=== PATIENT | male | born 1975 | race Two or more races ===

== ENCOUNTER 2017-03-23 17:01 | Emergency (ER) | payer SELFPAY ==
[~2017-03-23] VITALS: Ht 160 cm; Wt 75.5 kg
[2017-03-23 18:37] VITALS: Ht 160 cm; Wt 75.5 kg
[2017-03-23] MEDS ORDERED: ACETAMINOPHEN 325 MG TAB PO ONE (20:00)
--- NOTE | 2017-03-23 21:39 | RADRPT ---
PROCEDURE: XR Hand. CLINICAL INDICATION: Trauma due to dropping an 80 pound weight on the right hand. Right hand pain. TECHNIQUE: Three views. Frontal, lateral, and oblique images of the right hand were obtained. COMPARISON: No prior studies are available for comparison. FINDINGS: There is no fracture or dislocation. The soft tissues are normal. Articular surfaces are intact. There is no lytic or blastic lesion. There is no radiopaque foreign body. IMPRESSION: 1. Unremarkable images of the right hand. RPTAT: QQ .Augustus Mckeon MD, MD Date Time Electronically viewed and signed by .Augustus Mckeon MD, on 03/23/2017 21:38 .R/
--- NOTE | 2017-03-23 21:40 | RADRPT ---
PROCEDURE: XR Right Wrist. CLINICAL INDICATION: Trauma due to dropping an 80 pound weight on the right wrist. Right wrist ken n. TECHNIQUE: Four views. Frontal, lateral, oblique, and scaphoid view. COMPARISON: No prior studies are available for comparison. FINDINGS: There is no fracture or dislocation. The soft tissues are normal. Articular surfaces are intact. There is no lytic or blastic lesion. There is no radiopaque foreign body. IMPRESSION: 1. Normal images of the right wrist. RPTAT: QQ .Augustus Mckeon MD, MD Date Time Electronically viewed and signed by .Augustus Mckeon MD, on 03/23/2017 21:39 .R/
[2017-03-23] MEDS ORDERED: HYDR-906 PO (22:25)
--- NOTE | 2017-03-23 23:44 | ERD ---
ER Documentation Chief Complaint Date/Time DATE: 03/23/17 TIME: 23:34 Chief Complaint R thumb pain with injury last Thursday HPI Patient is a 42-year-old male with no past medical history who presents to the emergency department for concerns of right thumb pain 3 days. Patient states he was at work when he lifted an 80 pound metal car object. Patient states object landed on his right hand. Patient reports pain bending his right thumb. Patient denies any elbow pain or forearm pain. Patient is right-hand dominant. Patient denies any fevers, chills, nausea, vomiting, LOC. Patient denies any previous injuries or fractures to the affected extremity. ROS All systems reviewed and are negative except as per history of present illness. Medications Home Meds Active Scripts Hydrocodone/Acetaminophen ([place] 5-325 Tablet) 1 Each Tablet, 1 TAB PO Q6H Y for PAIN, #7 TAB Prov:ASIA GONZALEZ PA-C 03/23/17 Allergies Allergies: Coded Allergies: aspirin (Verified Allergy, Unknown, 03/23/17) PMhx/Soc Medical and Surgical Hx: pt denies Medical Hx, pt denies Surgical Hx Hx Alcohol Use: No Hx Substance Use: No Hx Tobacco Use: No Smoking Status: Never smoker Physical Exam Vitals Vital Signs Date Time Temp Pulse Resp B/P Pulse Ox O2 Delivery O2 Flow Rate FiO2 03/23/17 18:37 98.7 92 20 134/89 99 Physical Exam GENERAL: Well-developed, well-nourished male. Appears in no acute distress. HEAD: Normocephalic, atraumatic. EYES: Pupils are equally reactive bilaterally. EOMs grossly intact. No conjunctival erythema. ENT: Moist mucous membranes. No uvula deviation. No kissing tonsils. NECK: Supple. No meningismus. Normal range of motion of the neck. LUNG: Clear to auscultation bilaterally. No rhonchi, wheezing, rales or coarse breath sounds. HEART: Regular rate and rhythm. No murmurs, rubs or gallops. EXTREMITIES: Equal pulses bilaterally. No peripheral clubbing, cyanosis or edema. No unilateral leg swelling. NEUROLOGIC: Alert and oriented. Moving all four extremities without any difficulty. Normal speech. Steady gait. SKIN: Normal color. Warm and dry. No rashes or lesions. RIGHT HAND: No deformity, erythema. Swelling and ecchymosis noted to the patient 's thumb. Skin intact. Tender to palpation of the elbow, forearm. Tender to palpation over IPJ joint of thumb. Pain with flexion of thumb. Normal range of motion of digits 2 through 5. Normal range of motion of the elbow. Sensation intact to light touch. Neurovascularly intact. (Able to give thumbs up , make an ok sign, cross digits 2 and 3, thumb to pinky opposition. 2+ RP.) + snuffbox tenderness. Results 24 hrs Current Medications Medications (Trade) Dose Ordered Sig/French Route PRN Reason Start Time Stop Time Status Last Admin Dose Admin Acetaminophen (Tylenol Tab) 650 mg ONCE ONCE PO 03/23/17 20:00 03/23/17 20:01 DC 03/23/17 20:56 Procedures/MDM ED COURSE: The patient was stable throughout ED course. I kept the patient and/or family informed of laboratory and diagnostic imaging results throughout the ED course. DIAGNOSTIC IMAGING: Read by radiologist. DIAGNOSTIC IMAGING REPORT Patient: WANDA LAGUERRE : 1975 Age: 42 Sex: M MR #: [id number] DOS: 03/23/17 1950 Ordering MD: ASIA GONZALEZ PA-C Location: [facility] Room/Bed: PROCEDURE: XR Hand. CLINICAL INDICATION: Trauma due to dropping an 80 pound weight on the right hand. Right hand pain. TECHNIQUE: Three views. Frontal, lateral, and oblique images of the right hand were obtained. COMPARISON: No prior studies are available for comparison. FINDINGS: There is no fracture or dislocation. The soft tissues are normal. Articular surfaces are intact. There is no lytic or blastic lesion. There is no radiopaque foreign body. IMPRESSION: 1. Unremarkable images of the right hand. RPTAT: QQ .Augustus Mckeon MD, MD Date Time Electronically viewed and signed by .Augustus Mckeon MD, on 03/23/2017 21:38 .R/ CC: ASIA GONZALEZ PA-C DIAGNOSTIC IMAGING REPORT Patient: WANDA LAGUERRE : 1975 Age: 42 Sex: M MR #: [id number] DOS: 03/23/17 0000 Ordering MD: ASIA GONZALEZ PA-C Location: [facility] Room/Bed: PROCEDURE: XR Right Wrist. CLINICAL INDICATION: Trauma due to dropping an 80 pound weight on the right wrist. Right wrist pain. TECHNIQUE: Four views. Frontal, lateral, oblique, and scaphoid view. COMPARISON: No prior studies are available for comparison. FINDINGS: There is no fracture or dislocation. The soft tissues are normal. Articular surfaces are intact. There is no lytic or blastic lesion. There is no radiopaque foreign body. IMPRESSION: 1. Normal images of the right wrist. RPTAT: QQ .Augustus Mckeon MD, MD Date Time Electronically viewed and signed by .Augustus Mckeon MD, MD on 03/23/2017 21:39 .R/ CC: ASIA GONZALEZ PA-C PROCEDURES: SPLINT APPLICATION: The patient was verbally consented at bedside prior to splint application. Patient was explained the risks, benefits and alternatives to this procedure. The patient was neurovascularly intact prior to and status post application of the splint. The patient tolerated the procedure well with no complications. Splint type: thumb spica splint Extremity: RUE Indication: thumb sprain, unable to rule out scaphoid fracture. MEDICAL DECISION MAKING: This is a 42-year-old male who presents with right thumb pain after dropping a 80 pound metal object on his hand 3 days ago.. Vital signs were reviewed. Patient was afebrile. Imaging of the right hand and wrist were unremarkable. Patient did report snuffbox tenderness lamination. Patient was placed in a thumb spica splint. Patient was advised that he will need to be seen by an cash posting specialist and have repeat x-rays done in 1 week. Patient was advised to remain in splint until cleared by an cash posting specialist. Given these findings, the patient's presentation is most consistent with right thumb pain. I have a much lower clinical concern for dislocation, carpal fracture, metacarpal fracture, phalanx fracture, Boxers fracture, mallet finger , trigger finger, j subungual hematoma, finger avulsion injury, fingertip laceration, osteomyelitis or compartment syndrome. Unable to definitively rule out scaphoid fracture at this time. PRESCRIPTIONS: Ibuprofen DISCHARGE: At this time, patient is stable for discharge and outpatient management. Patient was advised to remain in splint until cleared by an cash posting specialist. Patient was given a copy of all imaging studies obtained today. I have instructed the patient to follow-up with his/her primary care physician in 1-2 days. I have discussed with the patient the possibility of needing to see an cash posting specialist for further workup and imaging if the pain persists. I have instructed the patient to promptly return to the ER for any new or worsening symptoms including increased pain, swelling, redness, warmth or fever. The patient and/or family expressed understanding of and agreement with this plan. All questions were answered. Home care instructions were provided. Disclaimer: Inadvertent spelling and grammatical errors are likely due to EHR/ dictation software use and do not reflect on the overall quality of patient care. Also, please note that the electronic time recorded on this note does not necessarily reflect the actual time of the patient encounter. Departure Diagnosis: Primary Impression: Pain of right thumb Condition: Stable Patient Instructions: Sprain Hand Referrals: [facility] YOU HAVE RECEIVED A MEDICAL SCREENING EXAM AND THE RESULTS INDICATE THAT YOU DO NOT HAVE A CONDITION THAT REQUIRES URGENT TREATMENT IN THE EMERGENCY DEPARTMENT. FURTHER EVALUATION AND TREATMENT OF YOUR CONDITION CAN WAIT UNTIL YOU ARE SEEN IN YOUR DOCTORS OFFICE WITHIN THE NEXT 1-2 DAYS. IT IS YOUR RESPONSIBILITY TO MAKE AN APPOINTMENT FOR FOLOW-UP CARE. IF YOU HAVE A PRIMARY DOCTOR --you should call your primary doctor and schedule an appointment IF YOU DO NOT HAVE A PRIMARY DOCTOR YOU CAN CALL OUR PHYSICIAN REFERRAL HOTLINE AT IF YOU CAN NOT AFFORD TO SEE A PHYSICIAN YOU CAN CHOSE FROM THE FOLLOWING [facility] [address] [facility] [address] [facility]. [facility] [address] [facility] [address] [facility] [facility] [address] [facility]. [facility]. [address] [facility]. [facility] YOU HAVE RECEIVED A MEDICAL SCREENING EXAM AND THE RESULTS INDICATE THAT YOU DO NOT HAVE A CONDITION THAT REQUIRES URGENT TREATMENT IN THE EMERGENCY DEPARTMENT. FURTHER EVALUATION AND TREATMENT OF YOUR CONDITION CAN WAIT UNTIL YOU ARE SEEN IN YOUR DOCTORS OFFICE WITHIN THE NEXT 1-2 DAYS. IT IS YOUR RESPONSIBILITY TO MAKE AN APPOINTMENT FOR FOLOW-UP CARE. IF YOU HAVE A PRIMARY DOCTOR --you should call your primary doctor and schedule and appointment IF YOU DO NOT HAVE A PRIMARY DOCTOR YOU CAN CALL OUR PHYSICIAN REFERRAL HOTLINE AT . IF YOU CAN NOT AFFORD TO SEE A PHYSICIAN YOU CAN CHOSE FROM THE FOLLOWING [facility] INSTITUTIONS: [facility] [address] [place] [address] [facility] [address] [place], [place] [id number] [place] [address] [address] [place] [address] [facility]SPECIALT[facility] Hours: Mon-Fri 9:00 AM - 5:00 PM Additional Instructions: Unable to rule out scaphoid fracture at this time. Patient advised to follow- up with an cash posting specialist and obtain repeat imaging in 1 week. Remain in splint until seen by an cash posting specialist. Call your primary care doctor TOMORROW for an appointment during the next 1-2 days.See the doctor sooner or return here if your condition worsens before your appointment time. ASIA GONZALEZ PA-C Mar 23, 2017 23:44
== END 2017-03-23 22:39 | disposition home or self-care (01) ==
LOC: FTE 17:01
DX: M79.644 Pain in right finger(s) (principal)